=== PATIENT | male | born 1965 | race Caucasian/White ===

== ENCOUNTER 2022-05-04 13:31 | Inpatient (IN) | payer OTHER ==
[~2022-05-04] VITALS: Ht 185.4 cm; Wt 102.3 kg
[2022-05-04 14:33] LABS: Albumin 3.8 g/dL (3.4-5.0); Magnesium 2.4 mg/dL (1.6-2.6); Potassium 4.4 mmol/L (3.5-5.1)
[2022-05-04 14:37] LABS: BUN/Creatinine Ratio 16.3; Bilirubin, Total 0.4 mg/dL (0.2-1.0); Total Protein 7.1 g/dL (6.4-8.2)
[2022-05-04 14:40] LABS: INR 0.94 (0.9-1.15); Partial Thromboplastin Time 29.3 sec (24.6-33.4)
[2022-05-04] MEDS ORDERED: ASPirin 325 MG TAB PO ONE (14:45)
[2022-05-04 14:46] LABS: Urine WBC None Seen /hpf (0 - 3)
[2022-05-04 14:47] LABS: Basophils # (auto) 0 10 ^3/uL (0-0.2); Basophils % (auto) 0.7 % (0.0-2.0); Eosinophils # (auto) 0.4 10 ^3/uL (0-0.8); Eosinophils % (auto) 6.5 % (0.0-7.0); Hematocrit 43.3 % (41.0-53.0); Lymphocytes # (auto) 1.7 10 ^3/uL (0.4-5.4); Lymphocytes % (auto) 27.6 % (10.0-50.0); Mean Corpuscular Hgb Conc. 34.6 g/dL (32.0-36.0); Mean Corpuscular Volume 89.4 fL (80.0-100.0); Monocytes # (auto) 0.4 10 ^3/uL (0-1.3); Monocytes % (auto) 6.6 % (0.0-12.0); Neutrophils # (auto) 3.6 10 ^3/uL (1.6-8.6); Neutrophils % (auto) 58.6 % (37.0-80.0); Nucleated Red Blood Cells % 0.3 %; Red Blood Cells 4.84 10^6/uL (4.5-5.90); Red Cell Distribution Width 12.1 % (11.8-14.3); White Blood Cell 6.2 10^3/uL (4.4-10.8)
[2022-05-04 15:06] LABS: Urine Bacteria NONE SEEN /hpf (None Seen); Urine Blood Negative /uL (Negative)
[2022-05-04] MEDS ORDERED: NITROGLYCERIN 0.4 MG SL TAB SL PRN (16:30)
[2022-05-04] MEDS ORDERED: ACETAMINOPHEN 325 MG TAB PO PRN (16:30)
[2022-05-04] MEDS ORDERED: MORPHINE SULFATE INJ 2 MG/ml SYRG IV PRN (16:30)
[2022-05-04] MEDS ORDERED: TEMAZEPAM 15 MG CAP PO PRN (16:30)
[2022-05-04] MEDS ORDERED: ONDANSETRON HCL 4 MG/2 ML VIAL IV PRN (16:30)
[2022-05-04] MEDS ORDERED: IOHEXOL 350 MG/ML 100ML IJ ONE (16:33)
[2022-05-04 19:17] LABS: Cholesterol 199 mg/dL (< 200); HDL Cholesterol 35 mg/dL (40-59); LDL Cholesterol 130 mg/dL (< 100); Triglycerides 213 mg/dL (< 150)
[2022-05-04 22:00] VITALS: BP 148/104
[2022-05-04] MEDS ORDERED: ATORVASTATIN 20 MG TAB PO SCH (22:00)
[2022-05-05 05:00] VITALS: BP 121/72
[2022-05-05 06:35] LABS: Basophils # (auto) 0 10 ^3/uL (0-0.2); Basophils % (auto) 0.3 % (0.0-2.0); Eosinophils # (auto) 0.4 10 ^3/uL (0-0.8); Eosinophils % (auto) 6.1 % (0.0-7.0); Hematocrit 41.2 % (41.0-53.0); Hemoglobin 14.6 g/dL (13.5-17.5); Lymphocytes # (auto) 1.5 10 ^3/uL (0.4-5.4); Lymphocytes % (auto) 24.9 % (10.0-50.0); Mean Corpuscular Hemoglobin 31.6 pg (28.0-32.0); Mean Corpuscular Hgb Conc. 35.3 g/dL (32.0-36.0); Mean Corpuscular Volume 89.4 fL (80.0-100.0); Monocytes # (auto) 0.5 10 ^3/uL (0-1.3); Monocytes % (auto) 8.6 % (0.0-12.0); Neutrophils # (auto) 3.6 10 ^3/uL (1.6-8.6); Neutrophils % (auto) 60.1 % (37.0-80.0); Nucleated Red Blood Cells % 0.1 %; Red Blood Cells 4.61 10^6/uL (4.5-5.90); Red Cell Distribution Width 12.1 % (11.8-14.3); White Blood Cell 5.9 10^3/uL (4.4-10.8)
[2022-05-05 07:45] LABS: Albumin 3.7 g/dL (3.4-5.0); Bilirubin, Total 0.8 mg/dL (0.2-1.0); Calcium 8.8 mg/dL (8.5-10.1); Total Protein 7.1 g/dL (6.4-8.2)
[2022-05-05 09:30] VITALS: BP 123/76
[2022-05-05] MEDS ORDERED: ASPirin 81 mg TAB PO SCH (10:00)
[2022-05-05] MEDS ORDERED: LISINOPRIL 5 MG TAB PO SCH (10:00)
[2022-05-05] MEDS ORDERED: ENOXAPARIN SOD 40 MG/0.4 ML SYRINGE SC SCH (10:00)
[2022-05-05 13:30] VITALS: BP 126/78
[2022-05-05 16:41] VITALS: BP 130/75
[2022-05-05 22:00] VITALS: BP 102/64
[2022-05-05] MEDS ORDERED: ATORVASTATIN 20 MG TAB PO SCH (22:00)
[2022-05-06] MEDS ORDERED: METOPROLOL SUCCINATE XL 50 MG TAB PO ONE (04:45)
[2022-05-06 05:00] VITALS: BP 115/72
[2022-05-06 06:24] LABS: Basophils # (auto) 0 10 ^3/uL (0-0.2); Basophils % (auto) 0.5 % (0.0-2.0); Eosinophils # (auto) 0.4 10 ^3/uL (0-0.8); Hematocrit 43.2 % (41.0-53.0); Hemoglobin 15.3 g/dL (13.5-17.5); Lymphocytes # (auto) 1.7 10 ^3/uL (0.4-5.4); Lymphocytes % (auto) 27.8 % (10.0-50.0); Mean Corpuscular Hemoglobin 31.6 pg (28.0-32.0); Mean Corpuscular Hgb Conc. 35.3 g/dL (32.0-36.0); Mean Corpuscular Volume 89.6 fL (80.0-100.0); Monocytes # (auto) 0.5 10 ^3/uL (0-1.3); Monocytes % (auto) 7.7 % (0.0-12.0); Neutrophils # (auto) 3.4 10 ^3/uL (1.6-8.6); Nucleated Red Blood Cells % 0.1 %; Red Blood Cells 4.82 10^6/uL (4.5-5.90); Red Cell Distribution Width 12.2 % (11.8-14.3)
[2022-05-06 06:39] LABS: Potassium 4.4 mmol/L (3.5-5.1)
[2022-05-06 06:43] LABS: Albumin 3.7 g/dL (3.4-5.0)
[2022-05-06 06:46] LABS: Bilirubin, Total 0.7 mg/dL (0.2-1.0); Total Protein 7.1 g/dL (6.4-8.2)
[2022-05-06 08:00] VITALS: BP 104/71
[2022-05-06] MEDS ORDERED: ASPI-325 PO (08:25)
[2022-05-06] MEDS ORDERED: LISI-275 PO (08:25)
[2022-05-06] MEDS ORDERED: ATOR20TA50 PO (08:25)
[2022-05-06] MEDS ORDERED: METO25TA93 PO (08:25)
[2022-05-06 09:00] VITALS: BP 115/72
[2022-05-07] MEDS ORDERED: METOPROLOL SUCCINATE XL 50 MG TAB PO SCH (10:00)
== END 2022-05-06 10:55 | disposition home or self-care (01) | DRG 313 ==
LOC: ER 13:31 → TELE 16:32 → TELE-WESTW 21:48
PROVIDERS: ADMIT Nurse Practitioner; ATTEND Nurse Practitioner
DX: R07.89 Other chest pain (principal); Z20.822 Contact with and (suspected) exposure to COVID-19; E78.5 Hyperlipidemia, unspecified; G89.29 Other chronic pain; I10 Essential (primary) hypertension; M41.9 Scoliosis, unspecified; Z79.82 Long term (current) use of aspirin; Z87.891 Personal history of nicotine dependence
CPT/HCPCS: 36415; 70460; 70498; 71045; 80053; 80061; 81001; 83735; 83880; 84484; 85025; 85610; 85730; 87426; 93005; 93306; G0378

== ENCOUNTER 2022-09-25 06:35 | Day surgery (SDC) | payer OTHER ==
[~2022-09-25] VITALS: Ht 185.4 cm; Wt 104.3 kg
[2022-09-25] VITALS (9 sets, daily range): BP systolic 96–122; BP diastolic 66–78; PULSE 59–73; RESP 11–20; TEMP 97.8; O2SAT 93–94
[~2022-09-25 06:35] MED LIST: ASPI-325 PO; ATOR20TA50 PO; LISI-275 PO; METO25TA93 PO
[2022-09-25] MEDS ORDERED: LIDOCAINE 2%HCL (LOCAL ANESTH.) INJ 20ML MDV ONE (07:42)
[2022-09-25] MEDS ORDERED: IOHEXOL 350 MG/ML 100ML IJ ONE (07:42)
[2022-09-25] MEDS ORDERED: IODIXANOL 320MG/ML 100ML BTL IV ONE (07:42)
[2022-09-25] MEDS ORDERED: SODIUM CHL 0.9% 0 ML ONE (07:43)
[2022-09-25] MEDS ORDERED: ANGIOMAX 250 MG VIAL IV ONE (07:43)
[2022-09-25] MEDS ORDERED: MIDAZOLAM HCL 2MG/2ML 2ml VIAL (1mg/ml) ONE (07:43)
[2022-09-25] MEDS ORDERED: VERAPAMIL 2.5MG/ML INJ 2ML VIAL IV ONE (07:43)
[2022-09-25] MEDS ORDERED: fentaNYL CITRATE 100 MCG/2 ML VL ONE (07:43)
[2022-09-25] MEDS ORDERED: HEPARIN SODIUM (PORCINE) 5000 UNITS/ML 1ML VIAL ONE (08:33)
== END 2022-09-25 11:00 | disposition home or self-care (01) ==
LOC: CATH 06:35
PROVIDERS: ATTEND Internal Medicine
DX: R94.39 Abnormal result of other cardiovascular function study (principal); I25.118 Atherosclerotic heart disease of native coronary artery with other forms of angina pectoris; R07.9 Chest pain, unspecified; Z79.899 Other long term (current) drug therapy; Z79.82 Long term (current) use of aspirin; Z98.890 Other specified postprocedural states
CPT/HCPCS: 93458; C1894; J1644; J2250; J3010; Q9967; 99152